=== PATIENT | male | born 1980 | race African-American/Black ===

== ENCOUNTER 2018-04-22 13:30 | Emergency (ER) | payer MEDICAID ==
[~2018-04-22] VITALS: Ht 175.3 cm; Wt 72.6 kg
[2018-04-22 13:37] VITALS: BP 113/66
== END 2018-04-22 15:42 | disposition left against medical advice (07) ==
LOC: ER 13:30
DX: R05 Cough (principal); R09.81 Nasal congestion; Z53.21 Procedure and treatment not carried out due to patient leaving prior to being seen by health care provider